=== PATIENT | female | born 1945 | race Caucasian/White ===

== ENCOUNTER 2017-12-03 11:09 | Inpatient (IN) ==
[2017-12-03] MEDS ORDERED: 0.9 % Sodium Chloride 1,000 ML IVC ONE (11:16)
[2017-12-03] MEDS ORDERED: Ipratropium/Albuterol Neb 3 ML IH ONE (11:16)
[2017-12-03] MEDS ORDERED: methylPREDNISolone 125 MG/2 ML VIAL IVP ONE (11:16)
--- NOTE | 2017-12-03 11:25 | Emergency Department Note ---
Disposition Clinical Impression: Acute exacerbation of chronic obstructive airways disease Disposition: Admitted As Inpatient Condition: Good Referrals: Lex Ramos DO [Primary Care Provider] - Forms: ED Satisfaction Letter Time of Disposition: 14:15 General Adult HPI - General Chief complaint: ED Shortness of Breath/Dyspnea Stated complaint: ADRIEN Time Seen by Provider: 12/03/17 11:16 Source: patient, EMS Limitations: no limitations Nursing Notes Reviewed: Yes Vital Signs Reviewed: Yes - History of Present Illness HPI Narrative: One-week history of shortness of breath got significantly worse this morning. Has been on azithromycin with no relief of her COPD exacerbation. Productive cough of a green sputum. Nonfebrile that has been chilling. Chest pain. Uses 2 L of oxygen at home has been requiring more oxygen. Get some relief prior to arrival here with albuterol inhaler however still short of breath and tachypneic. Pain Scale: 0 - Related Data Home Medications Medication Instructions Recorded Confirmed Albuterol Neb [Proventil Neb] 2.5 mg IH Q4HR PRN 08/13/15 08/13/15 Albuterol Sulfate [Albuterol 180 mcg IH Q4HR PRN 08/13/15 08/13/15 Inhaler] Aspirin [Adult Low Dose Aspirin EC] 81 mg PO DAILY 08/13/15 08/13/15 Budesonide/Formoterol 160/4.5 1 puff IH BIDR 08/13/15 08/13/15 [Symbicort] Furosemide [Lasix] 20 mg PO DAILY 08/13/15 08/13/15 Losartan [Cozaar] 25 mg PO DAILY 08/13/15 08/13/15 Oxygen 3 l NS DAILY 08/13/15 08/13/15 Potassium Chloride [Klor-Con 20 meq PO DAILY 08/13/15 08/13/15 Sprinkle] Roflumilast [Daliresp] 500 mcg PO DAILY 08/13/15 08/13/15 Azithromycin [Azithromycin 6-Tab 250 mg PO PER PKG DI 12/03/17 12/03/17 Pack] Citalopram Hydrobromide 40 mg PO DAILY 12/03/17 12/03/17 [Citalopram HBr] Umeclidinium Ramah [Incruse 1 puff IH DAILY 12/03/17 12/03/17 Ellipta] Allergies Allergy/AdvReac Type Severity Reaction Status Date / Time fluticasone AdvReac patient Verified 08/13/15 07:29 [From Advair Diskus] states "it drives her up the wall" salmeterol AdvReac patient Verified 08/13/15 07:29 [From Advair Diskus] states "it drives her up the wall" All systems ED: reviewed and negative except as stated. Constitutional: Reports: chills. Denies: fever ENT ED: Denies: congestion Cardiovascular: Denies: chest pain Respiratory: Reports: cough, dyspnea. Denies: wheezes Gastrointestinal: Reports: nausea. Denies: abdominal pain, vomiting, diarrhea Genitourinary: Denies: urgency, dysuria, frequency Musculoskeletal: Denies: back pain, neck pain Neurological: Denies: headache, weakness Past Medical History - Past Medical History Attestation: Yes The following information was validated with the patient. Source: patient Medical history: Reports: asthma, CHF, COPD, hyperlipidemia, hypertension Psychiatric history: Reports: no psych history - Social History Smoking Status: Current every day smoker Smokeless Tobacco Status: No Alcohol use: Reports: none Drug use: Reports: none Physical Exam - General Limitations: no limitations General appearance: alert, in distress (Appears to be short of breath and tachypneic) - Head Head exam: atraumatic, normocephalic, normal inspection - Eye Eye exam: Present: normal appearance, PERRL, EOMI - ENT ENT exam: normal exam, normal oropharynx, mucous membranes moist - Neck Neck exam: Present: normal inspection, full ROM, trachea midline - Chest Chest inspection: Present: normal inspection, symmetric chest wall rise. Absent : tenderness - Respiratory Respiratory exam: Present: respiratory distress, wheezes, accessory muscle use ( Costal retractions) - Cardiovascular Cardiovascular exam: Present: normal rhythm, tachycardia, normal heart sounds - Abdominal Exam Abdominal exam: Present: soft, Non-Tender. Absent: distention, guarding, rebound, rigidity, organomegaly - Extremities Exam Extremities exam: Present: normal inspection, full ROM. Absent: tenderness, pedal edema - Expanded Lower Extremity Exam Hip/Pelvis exam: Present: normal inspection, full ROM - Back Exam Back exam: Present: normal inspection, full ROM. Absent: tenderness - Neurological Exam Neurological exam: Present: alert, oriented X3 - Psychiatric Psychiatric exam: Present: anxious - Skin Skin exam: Present: warm, dry, intact Course Course Narrative: Female patient visiting to emergency department with a one-week history of shortness of breath and cough. Productive green sputum. Was on azithromycin prescribed by her care physician. No relief of her shortness of breath or cough. No fevers but chills. No chest pain. Does have a history of COPD and wears 2 L of oxygen at home at all times. EMS reports initial oxygen saturation in the low 90s however after assisting with her breathing treatment at home it came up to 97. They had her on 4 L of oxygen on the way here. She has wheezing throughout. And rhonchi in her lower lobes. We will give her a triple DuoNeb and a course of steroids. I anticipate admission for the patient. - Reevaluation(s) Reevaluation #1: Patient resting in bed. She states that she is feeling somewhat better however she does appear to be too Ill. She is still tachycardic. She is receiving her liter fluid bolus at this time. Her lung sounds are clear and they were when she initially came in however she does still have some scant wheezing on the left. We have place patient on Levaquin. She did fail outpatient therapy with azithromycin. Time: 12:23 - Consultations Consultation #1: Dr Nichols accepted Pt in stable condition. Vital Signs Temperature 97.9 F 12/03/17 11:12 Pulse Rate 96 12/03/17 11:12 Respiratory Rate 18 12/03/17 11:12 Blood Pressure 147/133 12/03/17 11:12 O2 Sat by Pulse Oximetry 95 12/03/17 11:12 Temperature 97.9 F 12/03/17 11:12 Pulse Rate 108 12/03/17 14:11 Respiratory Rate 18 12/03/17 14:11 Blood Pressure 177/89 12/03/17 14:11 O2 Sat by Pulse Oximetry 93 12/03/17 14:11 Oxygen Delivery Oxygen Delivery Nasal Cannula Medical Decision Making - Medical Records Medical records reviewed: Yes I reviewed the patient's medical records. - Lab Data Lab results reviewed: Yes I reviewed the patient's lab results. Result diagrams: 12/03/17 11:25 12/03/17 11:25 Lab Results 12/03/17 12/03/17 12/03/17 Range/Units 11:25 11:25 11:25 WBC 7.9 (4.3-11.1) K/mcL RBC 4.74 (3.82-4.97) M/mcL Hgb 13.8 (11.5-15.4) g/dL Hct 42.3 (35.3-44.9) % MCV 89.2 (83.0-100.0) fL MCH 29.1 (28.0-33.3) pg MCHC 32.6 (31.6-35.5) g/dL RDW 12.8 (11.5-14.5) % Plt Count 303 (140-400) K/mcL MPV 9.8 (9.4-12.4) fL Immature Gran % 0.3 (0-4) % Seg Neutrophils % 72.6 % Lymphocytes % 18.1 % Monocytes % 7.7 % Eosinophils % 1.0 % Basophils % 0.3 % Neutrophils # 5.8 (1.6-8.9) K/mcL Lymphocytes # 1.4 (0.6-4.6) K/mcL Monocytes # 0.6 (0.0-1.3) K/mcL Eosinophils # 0.1 (0.0-0.6) K/mcL Basophils # 0.0 (0.0-0.2) K/mcL Sodium 137 (136-145) mEq/L Potassium 3.9 (3.5-5.1) mEq/L Chloride 99 (98-107) mEq/L Carbon Dioxide 29 (23-29) mEq/L BUN 8 (8-23) mg/dL Creatinine 0.64 (0.60-1.20) mg/dL Est GFR ( Amer) > 60 (> 60) Est GFR (Non-Af Amer) > 60 (> 60) BUN/Creatinine Ratio 13 (6-26) Glucose 112 H (70-105) mg/dL Calculated Osmolality 283 (280-300) Lactic Acid 1.1 (0.5-2.2) mmol/L Calcium 9.4 (8.6-10.3) mg/dL Troponin I < 0.03 (< 0.04) ng/mL - Radiology Data Radiology results reviewed: Yes I reviewed the patient's radiology results. Chest X-Ray 12/03/17 11:16 IMPRESSION: Stable examination without acute focal process. D/ / Anup Andersen MD / Anup Andersen MD Interpreting Provider: Anup Andersen MD - EKG Data EKG #1 EKG attestation: Yes I reviewed and interpreted this EKG. EKG results narrative: Sinus tachycardia at a rate of 103. IN interval is 142. Respirations 103. QT is 323. QTC is 382. No signs of acute ischemia. Does have enlarged P waves however they were on the previous EKG no other significant changes from previous EKG dated 04/20/2016.
[2017-12-03 12:02] LABS: Troponin I < 0.03 ng/mL (< 0.04)
--- NOTE | 2017-12-03 12:04 | Emergency Department Note ---
Disposition Clinical Impression: Acute exacerbation of chronic obstructive airways disease Disposition: Still a Patient Forms: ED Satisfaction Letter General Adult HPI - General Chief complaint: ED Shortness of Breath/Dyspnea Stated complaint: ADRIEN Time Seen by Provider: 12/03/17 11:16 Source: patient, EMS Limitations: no limitations Nursing Notes Reviewed: Yes Vital Signs Reviewed: Yes - History of Present Illness Pain Scale: 0 - Related Data Home Medications Medication Instructions Recorded Confirmed Albuterol Neb [Proventil Neb] 2.5 mg IH Q4HR PRN 08/13/15 08/13/15 Albuterol Sulfate [Albuterol 180 mcg IH Q4HR PRN 08/13/15 08/13/15 Inhaler] Aspirin [Adult Low Dose Aspirin EC] 81 mg PO DAILY 08/13/15 08/13/15 Atorvastatin [Lipitor] 10 mg PO DAILY 08/13/15 08/13/15 Budesonide/Formoterol 160/4.5 1 puff IH BIDR 08/13/15 08/13/15 [Symbicort] Citalopram [CeleXA] 20 mg PO DAILY 08/13/15 08/13/15 Furosemide [Lasix] 20 mg PO DAILY 08/13/15 08/13/15 Gabapentin [Neurontin] 100 mg PO TID 08/13/15 08/13/15 Losartan [Cozaar] 25 mg PO DAILY 08/13/15 08/13/15 Oxygen 3 l NS DAILY 08/13/15 08/13/15 Potassium Chloride [Klor-Con 20 meq PO DAILY 08/13/15 08/13/15 Sprinkle] Roflumilast [Daliresp] 500 mcg PO DAILY 08/13/15 08/13/15 Tiotropium [Spiriva] 18 mcg IH DAILY 08/13/15 08/13/15 Previous Rx's Medication Instructions Recorded levoFLOXacin [Levaquin] 500 mg PO DAILY #7 tablet 04/20/16 predniSONE [PredniSONE] 20 mg PO DAILY #18 tablet 04/20/16 Allergies Allergy/AdvReac Type Severity Reaction Status Date / Time fluticasone AdvReac patient Verified 08/13/15 07:29 [From Advair Diskus] states "it drives her up the wall" salmeterol AdvReac patient Verified 08/13/15 07:29 [From Advair Diskus] states "it drives her up the wall" Constitutional: Reports: chills. Denies: fever ENT ED: Denies: congestion Cardiovascular: Denies: chest pain Respiratory: Reports: cough, dyspnea. Denies: wheezes Gastrointestinal: Reports: nausea. Denies: abdominal pain, vomiting, diarrhea Genitourinary: Denies: urgency, dysuria, frequency Musculoskeletal: Denies: back pain, neck pain Neurological: Denies: headache, weakness Past Medical History - Past Medical History Medical history: Reports: asthma, CHF, COPD, hyperlipidemia, hypertension Psychiatric history: Reports: no psych history - Social History Smoking Status: Current every day smoker Smokeless Tobacco Status: No Alcohol use: Reports: none Drug use: Reports: none Physical Exam - General Limitations: no limitations General appearance: alert, in no apparent distress Course - Reevaluation(s) Reevaluation #1: ATTESTATION NOTE I examined this patient and my medical decision-making was reviewed with the Resident Physician, CANDY TOLEDO. I agree with the documented findings, disposition and treatment plan as described except to the extent set forth below. I have personally performed a face to face evaluation on this patient. I have reviewed and agree with the care plan. Briefly: 72-year-old female history of COPD on home O2 comes in with increasing cough shortness of breath and productive sputum. Patient is slightly hypoxic hypokalemic and hypomagnesemic getting parenteral repletion. Patient getting triple DuoNeb chest x-ray EKG shows no acute ischemic changes plan is admission and treatment for COPD flare with possible pneumonia. Provided 35 minutes critical care service for this patient admission disposition pending Time: 12:02 Vital Signs Temperature 97.9 F 12/03/17 11:12 Pulse Rate 96 12/03/17 11:12 Respiratory Rate 18 12/03/17 11:12 Blood Pressure 147/133 12/03/17 11:12 O2 Sat by Pulse Oximetry 95 12/03/17 11:12 Temperature 97.9 F 12/03/17 11:12 Pulse Rate 96 12/03/17 11:12 Respiratory Rate 20 12/03/17 11:31 Blood Pressure 147/133 12/03/17 11:12 O2 Sat by Pulse Oximetry 92 12/03/17 11:31 Oxygen Delivery Oxygen Delivery Nasal Cannula Medical Decision Making - Lab Data Lab Results 12/03/17 Range/Units 11:25 Lactic Acid 1.1 (0.5-2.2) mmol/L
[2017-12-03 12:07] LABS: BUN/Creatinine Ratio 13 (6-26); Blood Urea Nitrogen 8 mg/dL (8-23); Calcium 9.4 mg/dL (8.6-10.3); Carbon Dioxide 29 mEq/L (23-29); Chloride 99 mEq/L (98-107); Glucose 112 mg/dL (70-105); Osmolality,Calculated 283 (280-300); Potassium 3.9 mEq/L (3.5-5.1); Sodium 137 mEq/L (136-145); eGFR For African Americans > 60 (> 60); eGFR For Non-African Americans > 60 (> 60)
[2017-12-03 12:13] LABS: Basophils % 0.3 %; Eosinophils # 0.1 K/mcL (0.0-0.6); Hematocrit 42.3 % (35.3-44.9); Hemoglobin 13.8 g/dL (11.5-15.4); Immature Granulocytes % 0.3 % (0-4); Lymphocytes # 1.4 K/mcL (0.6-4.6); Lymphocytes % 18.1 %; Mean Corpuscular HGB Conc 32.6 g/dL (31.6-35.5); Mean Corpuscular Hemoglobin 29.1 pg (28.0-33.3); Mean Corpuscular Volume 89.2 fL (83.0-100.0); Mean Platelet Volume 9.8 fL (9.4-12.4); Monocytes # 0.6 K/mcL (0.0-1.3); Monocytes % 7.7 %; Neutrophils # 5.8 K/mcL (1.6-8.9); Platelet Count 303 K/mcL (140-400); Red Blood Count 4.74 M/mcL (3.82-4.97); Red Cell Distribution Width 12.8 % (11.5-14.5); Segmented Neutrophils % 72.6 %
[2017-12-03] MEDS ORDERED: Levofloxacin 750 MG/150 ML 750 MG/150 ML BAG IVPB ONE (13:16)
--- NOTE | 2017-12-03 15:18 | Internal Med History&Physical ---
Date of Encounter: 12/03/17 Time of Encounter: 15:15 Assessment and Plan (1) HTN (hypertension) Current visit: Yes Status: Chronic Chronic and noncontrol make adjustment to his home medication Qualifiers: Hypertension type: essential hypertension Qualified Code(s): I10 - Essential (primary) hypertension (2) Acute exacerbation of chronic obstructive airways disease Current visit: Yes Status: Acute Acute exacerbation due to bronchitis was started on Levaquin DuoNeb and steroids (3) Hyperlipidemia Current visit: Yes Status: Chronic Chronic resume home medication and check another profile in a.m. Qualifiers: Hyperlipidemia type: pure hypercholesterolemia Qualified Code(s): E78.00 - Pure hypercholesterolemia, unspecified; E78.0 - Pure hypercholesterolemia (4) Obesity Current visit: Yes Status: Chronic Qualifiers: Obesity type: due to excess calories Obesity classification: unspecified obesity classification Serious obesity comorbidity presence: unspecified whether serious comorbidity present Qualified Code(s): E66.09 - Other obesity due to excess calories (5) Smoking Current visit: Yes Status: Chronic Internal Medicine - H&P: HPI Chief complaint: sob Admitted From: Emergency Dept Plans for Post Hospital Care: Home History of present illness: Ms. Riley is a 72 year old female Patient with history of asthma, COPD, high cholesterol, hypertension, obesity, and smoking history. Patient presented emergency room with shortness of breath progressively worsening with cough productive of greenish sputum chest x-ray does not show pneumonia in the ER treated with DuoNeb and then been admitted for COPD exacerbation. Past Med Surg Social Fam HX - Past Medical History Medical history: asthma, CHF, COPD, hyperlipidemia, hypertension Psychiatric history: no psych history - Social History Smoking Status: Current every day smoker Smokeless Tobacco Status: No Alcohol use: none Drug use: none Internal Medicine - H&P: Meds Albuterol Neb [Proventil Neb] 2.5 mg IH Q4HR PRN 08/13/15 [History] Albuterol Sulfate [Albuterol Inhaler] 2 puff IH Q4HR PRN 08/13/15 [History] Aspirin [Adult Low Dose Aspirin EC] 81 mg PO DAILY 08/13/15 [History] Budesonide/Formoterol 160/4.5 [Symbicort] 1 puff IH BIDR 08/13/15 [History] Furosemide [Lasix] 20 mg PO DAILY 08/13/15 [History] Losartan [Cozaar] 25 mg PO DAILY 08/13/15 [History] Oxygen 3 l NS DAILY 08/13/15 [History] Potassium Chloride [Klor-Con Sprinkle] 20 meq PO DAILY 08/13/15 [History] Roflumilast [Daliresp] 500 mcg PO DAILY 08/13/15 [History] Azithromycin [Azithromycin 6-Tab Pack] 250 mg PO PER PKG DI 12/03/17 [History] Citalopram Hydrobromide [Citalopram HBr] 40 mg PO DAILY 12/03/17 [History] Umeclidinium Aurora [Incruse Ellipta] 1 puff IH DAILY 12/03/17 [History] 3 Allergy/AdvReac Type Severity Reaction Status Date / Time fluticasone AdvReac patient Verified 08/13/15 07:29 [From Advair Diskus] states "it drives her up the wall" salmeterol AdvReac patient Verified 08/13/15 07:29 [From Advair Diskus] states "it drives her up the wall" All Systems PM: A 10-system review of systems was performed and is negative for pertinent findings except as documented above in the HPI. - Constitutional Constitutional: lethargy - EENT Eyes: no change in vision, no discharge, no pain, no photophobia Ears: no ear discharge, no ear pain, no tinnitus Nose, mouth and throat: no dysphagia, no nasal discharge, no neck pain, no sore throat - Cardiovascular Cardiovascular ROS IM: dyspnea on exertion - Respiratory Respiratory: cough, dyspnea on exertion, wheezing - Gastrointestinal Gastrointestinal: no abdominal pain, no diarrhea, no hematemesis, no hematochezia, no melena, no nausea, no vomiting - Genitourinary Genitourinary: no change in urinary stream, no dysuria, no flank pain, no hematuria - Musculoskeletal Musculoskeletal ROS IM: no numbness, no tingling - Constitutional Vitals: Temp Pulse Resp BP Pulse Ox 97.9 F 108 18 177/89 93 12/03/17 11:12 12/03/17 14:11 12/03/17 14:11 12/03/17 14:11 12/03/17 14:11 - Eye Eye exam: Present: PERRL, conjuntiva pink, sclera anicteric Pupils: Present: PERRL - Neck Neck exam general surgery: Present: supple, trachea midline. Absent: lymphadenopathy - Respiratory Respiratory exam: Present: decreased breath sounds, wheezes - Cardiovascular Cardiovascular exam: Present: RRR, +S1, +S2. Absent: diastolic murmur, gallop, rubs, systolic murmur - GI/Abdominal GI/Abdominal exam: Present: normal bowel sounds, soft, no peritoneal signs. Absent: distended, tenderness Internal Med - H&P Results - Labs CBC & Chem 7: 12/03/17 11:25 12/03/17 11:25 Labs: Short CBC 12/03/17 Range/Units 11:25 WBC 7.9 (4.3-11.1) K/mcL Hgb 13.8 (11.5-15.4) g/dL Hct 42.3 (35.3-44.9) % Plt Count 303 (140-400) K/mcL Neutrophils # 5.8 (1.6-8.9) K/mcL BMP 12/03/17 11:25 Sodium 137 Potassium 3.9 Chloride 99 Carbon Dioxide 29 BUN 8 Creatinine 0.64 Glucose 112 H Calcium 9.4 Cardiac Enzymes 12/03/17 Range/Units 11:25 Troponin I < 0.03 (< 0.04) ng/mL - Impressions ITS Impressions Chest X-Ray 12/03/17 11:16 IMPRESSION: Stable examination without acute focal process. D/ / Anup Andersen MD / Anup Andersen MD Interpreting Provider: Anup Andersen MD
[2017-12-03] MEDS ORDERED: traMADol 50 MG TABLET PO PRN (15:25)
[2017-12-03] MEDS ORDERED: Naloxone 0.4 MG/ML INJ IVP PRN (15:25)
[2017-12-03] MEDS ORDERED: Acetaminophen 325 MG TABLET PO PRN (15:25)
[2017-12-03] MEDS ORDERED: Ipratropium/Albuterol Neb 3 ML IH PRN (15:36)
[2017-12-03] MEDS: Ipratropium/Albuterol Neb 3 ML IH SCH ×2 (16:25→22:48)
[2017-12-03] MEDS ORDERED: *HR* Labetalol 20 MG/4 ML SYRINGE IVP PRN (18:50)
[2017-12-03] MEDS: amLODIPine 5 MG TABLET PO SCH (19:07)
[2017-12-03] MEDS: 0.9 % Sodium Chloride 1,000 ML IVC SCH (19:09)
[2017-12-03] MEDS: MethylPREDNISolone 40 MG/ML VIAL IVP SCH ×2 (19:10→23:18)
[2017-12-03] MEDS: Budesonide/Formoterol 160/4.5 MDI IH SCH (22:48)
[2017-12-04] MEDS: Ipratropium/Albuterol Neb 3 ML IH SCH ×4 (03:06→20:38)
[2017-12-04 04:52] LABS: Hematocrit 39.1 % (35.3-44.9); Hemoglobin 12.9 g/dL (11.5-15.4); Mean Corpuscular Volume 87.9 fL (83.0-100.0); Mean Platelet Volume 11.2 fL (9.4-12.4); Platelet Count 240 K/mcL (140-400); Red Blood Count 4.45 M/mcL (3.82-4.97); Red Cell Distribution Width 12.7 % (11.5-14.5)
[2017-12-04 04:57] LABS: Alanine Aminotransferase 10 Units/L (7-52); Albumin 3.9 g/dL (3.5-5.7); Albumin/Globulin Ratio 1.1 (1.1-2.2); Alkaline Phosphatase 80 Units/L (34-104); Aspartate Amino Transferase 17 Units/L (13-39); BUN/Creatinine Ratio 9 (6-26); Bilirubin,Total 0.7 mg/dL (0.3-1.0); Blood Urea Nitrogen 5 mg/dL (8-23); Calcium 9.2 mg/dL (8.6-10.3); Carbon Dioxide 28 mEq/L (23-29); Chloride 100 mEq/L (98-107); Cholesterol 183 mg/dL (< 200); Globulin 3.4 g/dL (2.4-3.5); Glucose 149 mg/dL (70-105); HDL Cholesterol 62 mg/dL (40-59); LDL Cholesterol,Calculated 108 mg/dL (0-99); Osmolality,Calculated 286 (280-300); Potassium 4.4 mEq/L (3.5-5.1); Sodium 138 mEq/L (136-145); Total Protein 7.3 g/dL (6.4-8.9); Triglycerides 64 mg/dL (< 150); eGFR For African Americans > 60 (> 60); eGFR For Non-African Americans > 60 (> 60)
[2017-12-04] MEDS ORDERED: Nystatin POWDER 30 GM BOTTLE TP PRN (08:41)
[2017-12-04] MEDS ORDERED: (Umeclidinium Bromide [Incruse Ellipta] 1 PUFF) IH SCH (09:00)
[2017-12-04] MEDS ORDERED: (Roflumilast [Daliresp] 500 MCG) PO SCH (09:00)
[2017-12-04] MEDS: Budesonide/Formoterol 160/4.5 MDI IH SCH (10:23)
[2017-12-04] MEDS: MethylPREDNISolone 40 MG/ML VIAL IVP SCH ×2 (10:43→16:00)
[2017-12-04] MEDS: amLODIPine 5 MG TABLET PO SCH (10:44)
[2017-12-04] MEDS: Levofloxacin 750 MG/150 ML 750 MG/150 ML BAG IVPB SCH (10:44)
[2017-12-04] MEDS: Aspirin Enteric Coated 81 MG Tablet PO SCH (10:44)
[2017-12-04] MEDS: 0.9 % Sodium Chloride 1,000 ML IVC SCH (10:50)
--- NOTE | 2017-12-04 11:19 | Internal Med Progress Note ---
<RubenJeremy Reynaga - Last Filed: 12/04/17 11:16> Date of Encounter: 12/04/17 Time of Encounter: 08:45 - Assessment and plan (1) Acute exacerbation of chronic obstructive airways disease Current Visit: Yes Status: Acute Assessment and plan: 72-year-old female with severe COPD on baseline 3 L oxygen at home, continues to smoke daily recent treatment for bronchitis with azithromycin and steroids the outpatient setting. - Current oxygen requirements is 4 L nasal cannula, diffuse diminished breath sounds with diffuse wheezing. - Home bronchodilators include albuterol inhaler, increase a lipid, Symbicort and Roflumilast - CXR without findings of consolidation - ABX: Levaquin day 2 - Continue scheduled duo nebs, wean oxygen as tolerated to baseline 3 L, continue as needed albuterol inhaler, continue Symbicort, IV Solu-Medrol 40 mg every 8 hours, continue Roflumilast Clinical picture: Improving (2) Yeast infection of the skin Current Visit: Yes Status: Acute Assessment and plan: Bilateral breast folds and inguinal folds demonstrate satellite distribution of yeast infection. - Lotrimin and nystatin treatments twice a day (3) HTN (hypertension) Current Visit: Yes Status: Chronic Assessment and plan: Mildly hypertensive. Continue management with Norvasc 10 mg, labetalol 10 mg IV every 6 hours when necessary, Cozaar 50 mg by mouth daily Qualifiers: Hypertension type: essential hypertension Qualified Code(s): I10 - Essential (primary) hypertension (4) Smoking Current Visit: Yes Status: Chronic Assessment and plan: Patient is an every day smoker likely contributed to her severe COPD and acute COPD exacerbation. - Recommend smoking cessation (5) DVT prophylaxis Current Visit: Yes Status: Acute Assessment and plan: Lovenox daily 6 AM - Time Spent With Patient Total time spent is greater than 50% in coordination of care (as documented) at patient's floor/unit and/or counseling patient: - Subjective Interval history: Miss Riley 72-year-old female seen about the patient bedside this morning. She is alert awake interactive no acute distress. She states that she does feel little more short of breath than her baseline but does have severe COPD and uses her inhalers regularly. She denies any fevers, chills, diaphoresis but is having clear sputum production. Denies any chest pain, abdominal pain, nausea vomiting diarrhea. Complaining of a rash under her breasts bilaterally and in her groin folds. No other current complaints. - Constitutional Vitals: Temp Pulse Resp BP Pulse Ox 97.8 F 96 18 160/83 92 12/04/17 10:32 12/04/17 10:32 12/04/17 10:32 12/04/17 10:32 12/04/17 10:32 Exam: General: Patient alert, awake, oriented 3, interactive, in no acute distress HEENT: Normocephalic, atraumatic, pupils equal reactive to light,oral mucosa moist, uvula midline, neck supple trachea midline no palpable lymphadenopathy, no thyromegaly. Chest: Symmetric bilateral correlating with respiratory effort, effort nonlabored. Cardiac: Regular rate and rhythm, positive S1 and S2. no bruits appreciated bilateral carotids, Radial pulses 2+ bilateral, posterior tibial and dorsal pedal pulses 2+ bilateral. Respiratory: Diffuse diminished breath sounds with diffuse wheezing, chest demonstrates barreling, patient agrees with pursed lips. Abdomen: Soft, nontender, positive bowel sounds, no palpable masses appreciated on examination Extremities: Symmetric bilateral, bilateral lower extremities without erythema or edema patient moving all 4 extremities spontaneously. Patient has findings of erythema in satellite distribution under bilateral breasts and inguinal folds bilateral. Neurologic: No focal deficits appreciated on examination. Face symmetric, muscle strength symmetric bilateral upper and lower extremities. Internal Medicine: Result - Labs CBC & Chem 7: 12/04/17 04:09 12/04/17 04:09 Labs: Short CBC 12/04/17 Range/Units 04:09 WBC 5.8 (4.3-11.1) K/mcL Hgb 12.9 (11.5-15.4) g/dL Hct 39.1 (35.3-44.9) % Plt Count 240 (140-400) K/mcL BMP 12/04/17 04:09 Sodium 138 Potassium 4.4 Chloride 100 Carbon Dioxide 28 BUN 5 L Creatinine 0.57 L Glucose 149 H Calcium 9.2 Liver Function 12/04/17 Range/Units 04:09 Total Bilirubin 0.7 (0.3-1.0) mg/dL AST 17 (13-39) Units/L ALT 10 (7-52) Units/L Alkaline Phosphatase 80 (34-104) Units/L Albumin 3.9 (3.5-5.7) g/dL Consult Discharge Plan - Plan Referrals: Lex Ramos DO [Primary Care Provider] - 12/11/17 9:30 am <Carlos A Ball - Last Filed: 12/04/17 16:14> Date of Encounter: 12/04/17 - Time Spent With Patient Total time spent is greater than 50% in coordination of care (as documented) at patient's floor/unit and/or counseling patient: - Constitutional Vitals: Temp Pulse Resp BP Pulse Ox 97.8 F 96 16 160/83 94 12/04/17 10:32 12/04/17 10:32 12/04/17 15:02 12/04/17 10:32 12/04/17 15:02 Internal Medicine: Result - Labs CBC & Chem 7: 12/04/17 04:09 12/04/17 04:09 Labs: Short CBC 12/04/17 Range/Units 04:09 WBC 5.8 (4.3-11.1) K/mcL Hgb 12.9 (11.5-15.4) g/dL Hct 39.1 (35.3-44.9) % Plt Count 240 (140-400) K/mcL BMP 12/04/17 04:09 Sodium 138 Potassium 4.4 Chloride 100 Carbon Dioxide 28 BUN 5 L Creatinine 0.57 L Glucose 149 H Calcium 9.2 Liver Function 12/04/17 Range/Units 04:09 Total Bilirubin 0.7 (0.3-1.0) mg/dL AST 17 (13-39) Units/L ALT 10 (7-52) Units/L Alkaline Phosphatase 80 (34-104) Units/L Albumin 3.9 (3.5-5.7) g/dL - Attending Attestation acute on chronic acute hypoxic resp failure 2ry to acute copd exacerbation duet to acute bacterial bronchitis continue levaquin day 2 solumedrol I examined this patient and my medical decision-making was reviewed with the Resident Physician. I agree with the documented findings, disposition and treatment plan as described except to the extent set forth below.
[2017-12-04] MEDS ORDERED: Ipratropium/Albuterol Neb 3 ML IH PRN (21:21)
[2017-12-04] MEDS: Clotrimazole 1% CRM 15 GM TUBE TP SCH (21:25)
--- NOTE | 2017-12-04 22:58 | Electrocardiograph Report ---
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
[2017-12-05] MEDS: MethylPREDNISolone 40 MG/ML VIAL IVP SCH ×3 (02:46→15:29)
[2017-12-05] MEDS: Ipratropium/Albuterol Neb 3 ML IH SCH ×4 (03:12→21:22)
[2017-12-05 05:27] LABS: Hematocrit 39.3 % (35.3-44.9); Hemoglobin 12.7 g/dL (11.5-15.4); Immature Granulocytes % 0.5 % (0-4); Lymphocytes % 5.9 %; Mean Corpuscular HGB Conc 32.3 g/dL (31.6-35.5); Mean Corpuscular Hemoglobin 28.4 pg (28.0-33.3); Mean Corpuscular Volume 87.9 fL (83.0-100.0); Mean Platelet Volume 9.9 fL (9.4-12.4); Monocytes % 2.9 %; Platelet Count 341 K/mcL (140-400); Red Blood Count 4.47 M/mcL (3.82-4.97); Red Cell Distribution Width 12.5 % (11.5-14.5); Segmented Neutrophils % 90.6 %
[2017-12-05 05:28] LABS: Basophils % 0.1 %; Lymphocytes # 0.8 K/mcL (0.6-4.6); Monocytes # 0.4 K/mcL (0.0-1.3); Neutrophils # 11.7 K/mcL (1.6-8.9)
[2017-12-05 05:30] LABS: Alanine Aminotransferase 10 Units/L (7-52); Albumin 3.9 g/dL (3.5-5.7); Albumin/Globulin Ratio 1.3 (1.1-2.2); Alkaline Phosphatase 77 Units/L (34-104); Aspartate Amino Transferase 18 Units/L (13-39); BUN/Creatinine Ratio 17 (6-26); Bilirubin,Total 0.6 mg/dL (0.3-1.0); Blood Urea Nitrogen 10 mg/dL (8-23); Calcium 9.4 mg/dL (8.6-10.3); Carbon Dioxide 29 mEq/L (23-29); Chloride 99 mEq/L (98-107); Glucose 154 mg/dL (70-105); Osmolality,Calculated 284 (280-300); Potassium 3.7 mEq/L (3.5-5.1); Sodium 136 mEq/L (136-145); Total Protein 6.9 g/dL (6.4-8.9); eGFR For African Americans > 60 (> 60); eGFR For Non-African Americans > 60 (> 60)
[2017-12-05] MEDS: *HR* Enoxaparin 40 MG/0.4 ML SYRINGE SQ SCH (05:47)
[2017-12-05] MEDS: amLODIPine 5 MG TABLET PO SCH (08:24)
[2017-12-05] MEDS: Aspirin Enteric Coated 81 MG Tablet PO SCH (08:24)
[2017-12-05] MEDS: Levofloxacin 750 MG/150 ML 750 MG/150 ML BAG IVPB SCH (08:25)
[2017-12-05] MEDS: Clotrimazole 1% CRM 15 GM TUBE TP SCH ×2 (08:26→20:30)
--- NOTE | 2017-12-05 08:50 | Internal Med Progress Note ---
<Jeremy Miranda - Last Filed: 12/05/17 10:36> Date of Encounter: 12/05/17 Time of Encounter: 08:50 - Assessment and plan (1) Acute exacerbation of chronic obstructive airways disease Current Visit: Yes Status: Acute Assessment and plan: 72-year-old female with severe COPD on baseline 3 L oxygen at home, continues to smoke daily recent treatment for bronchitis with azithromycin and steroids the outpatient setting. - Current oxygen requirements is 4 L nasal cannula, diffuse diminished breath sounds with diffuse wheezing. - Home bronchodilators include albuterol inhaler, increase a lipid, Symbicort and Roflumilast - CXR without findings of consolidation - ABX: Levaquin day 3 - Continue scheduled duo nebs, wean oxygen as tolerated to baseline 3 L, continue as needed albuterol inhaler, continue Symbicort, IV Solu-Medrol 40 mg every 8 hours, continue Roflumilast Clinical picture: Improving, will likely need long-term taper of by mouth steroids (2) Yeast infection of the skin Current Visit: Yes Status: Acute Assessment and plan: Bilateral breast folds and inguinal folds demonstrate satellite distribution of yeast infection. - Lotrimin and nystatin treatments twice a day (3) HTN (hypertension) Current Visit: Yes Status: Chronic Assessment and plan: Mildly hypertensive. Continue management with Norvasc 10 mg, labetalol 10 mg IV every 6 hours when necessary, Cozaar 50 mg by mouth daily Qualifiers: Hypertension type: essential hypertension Qualified Code(s): I10 - Essential (primary) hypertension (4) Smoking Current Visit: Yes Status: Chronic Assessment and plan: Patient is an every day smoker likely contributed to her severe COPD and acute COPD exacerbation. - Recommend smoking cessation (5) DVT prophylaxis Current Visit: Yes Status: Acute Assessment and plan: Lovenox daily 6 AM (6) Acute and chronic respiratory failure ([id number]) Current Visit: Yes Status: Acute Assessment and plan: due to above. - Time Spent With Patient Total time spent is greater than 50% in coordination of care (as documented) at patient's floor/unit and/or counseling patient: - Subjective Interval history: Miss Riley 72-year-old female seen about the patient bedside this morning. She is alert awake interactive no acute distress. She feels her breathing is still the same. Yesterday, minimal improvement, continues to have some mild sputum production. Denies any fevers had sweating last evening but denies chills. Denies any other new symptoms. She feels that she is in need for her breathing treatment. No further questions at this time understands she may need another day or 2 of inpatient treatment. - Constitutional Vitals: Temp Pulse Resp BP Pulse Ox 98.1 F 92 16 155/84 96 12/05/17 06:44 12/05/17 06:44 12/05/17 06:44 12/05/17 06:44 12/05/17 08:09 Exam: General: Patient alert, awake, oriented 3, interactive, in no acute distress HEENT: Normocephalic, atraumatic, pupils equal reactive to light,oral mucosa moist, uvula midline, neck supple trachea midline no palpable lymphadenopathy, no thyromegaly. Chest: Symmetric bilateral correlating with respiratory effort, effort nonlabored. Cardiac: Regular rate and rhythm, positive S1 and S2. no bruits appreciated bilateral carotids, Radial pulses 2+ bilateral, posterior tibial and dorsal pedal pulses 2+ bilateral. Respiratory: Diffuse diminished breath sounds with diffuse wheezing, chest demonstrates barreling, patient agrees with pursed lips. Abdomen: Soft, nontender, positive bowel sounds, no palpable masses appreciated on examination Extremities: Symmetric bilateral, bilateral lower extremities without erythema or edema patient moving all 4 extremities spontaneously. Patient has findings of erythema in satellite distribution under bilateral breasts and inguinal folds bilateral. Neurologic: No focal deficits appreciated on examination. Face symmetric, muscle strength symmetric bilateral upper and lower extremities. Internal Medicine: Result - Labs CBC & Chem 7: 12/05/17 04:18 12/05/17 04:18 Labs: Short CBC 12/05/17 Range/Units 04:18 WBC 12.9 H D (4.3-11.1) K/mcL Hgb 12.7 (11.5-15.4) g/dL Hct 39.3 (35.3-44.9) % Plt Count 341 (140-400) K/mcL Neutrophils # 11.7 H (1.6-8.9) K/mcL BMP 12/05/17 04:18 Sodium 136 Potassium 3.7 Chloride 99 Carbon Dioxide 29 BUN 10 Creatinine 0.60 Glucose 154 H Calcium 9.4 Liver Function 12/05/17 Range/Units 04:18 Total Bilirubin 0.6 (0.3-1.0) mg/dL AST 18 (13-39) Units/L ALT 10 (7-52) Units/L Alkaline Phosphatase 77 (34-104) Units/L Albumin 3.9 (3.5-5.7) g/dL Consult Discharge Plan - Plan Referrals: Lex Ramos DO [Primary Care Provider] - 12/11/17 9:30 am <Carlos A Ball - Last Filed: 12/05/17 12:57> Date of Encounter: 12/05/17 - Assessment and plan (1) Acute exacerbation of chronic obstructive airways disease Current Visit: Yes Status: Acute (2) HTN (hypertension) Current Visit: Yes Status: Chronic Qualifiers: Hypertension type: essential hypertension Qualified Code(s): I10 - Essential (primary) hypertension (3) Smoking Current Visit: Yes Status: Chronic (4) Yeast infection of the skin Current Visit: Yes Status: Acute (5) DVT prophylaxis Current Visit: Yes Status: Acute (6) Acute and chronic respiratory failure ([id number]) Current Visit: Yes Status: Acute - Time Spent With Patient Total time spent is greater than 50% in coordination of care (as documented) at patient's floor/unit and/or counseling patient: - Constitutional Vitals: Temp Pulse Resp BP Pulse Ox 98.0 F 102 18 136/81 97 12/05/17 11:01 12/05/17 11:01 12/05/17 11:01 12/05/17 11:01 12/05/17 11:01 Internal Medicine: Result - Labs CBC & Chem 7: 12/05/17 04:18 12/05/17 04:18 Labs: Short CBC 12/05/17 Range/Units 04:18 WBC 12.9 H D (4.3-11.1) K/mcL Hgb 12.7 (11.5-15.4) g/dL Hct 39.3 (35.3-44.9) % Plt Count 341 (140-400) K/mcL Neutrophils # 11.7 H (1.6-8.9) K/mcL BMP 12/05/17 04:18 Sodium 136 Potassium 3.7 Chloride 99 Carbon Dioxide 29 BUN 10 Creatinine 0.60 Glucose 154 H Calcium 9.4 Liver Function 04/11/18 Range/Units 04:18 Total Bilirubin 0.6 (0.3-1.0) mg/dL AST 18 (13-39) Units/L ALT 10 (7-52) Units/L Alkaline Phosphatase 77 (34-104) Units/L Albumin 3.9 (3.5-5.7) g/dL - Attending Attestation acute on chronic acute hypoxic resp failure 2ry to acute copd exacerbation duet to acute bacterial bronchitis continue levaquin day 3 solumedrol I examined this patient and my medical decision-making was reviewed with the Resident Physician. I agree with the documented findings, disposition and treatment plan as described except to the extent set forth below.
[2017-12-06] MEDS: MethylPREDNISolone 40 MG/ML VIAL IVP SCH ×3 (00:37→16:45)
[2017-12-06] MEDS: Ipratropium/Albuterol Neb 3 ML IH SCH ×4 (03:52→22:41)
[2017-12-06] MEDS: *HR* Enoxaparin 40 MG/0.4 ML SYRINGE SQ SCH (06:27)
[2017-12-06] MEDS: amLODIPine 5 MG TABLET PO SCH (09:25)
[2017-12-06] MEDS: Aspirin Enteric Coated 81 MG Tablet PO SCH (09:27)
[2017-12-06] MEDS: Levofloxacin 750 MG/150 ML 750 MG/150 ML BAG IVPB SCH (09:35)
--- NOTE | 2017-12-06 10:04 | Internal Med Progress Note ---
<Jeremy Miranda - Last Filed: 12/06/17 10:01> Date of Encounter: 12/06/17 Time of Encounter: 07:25 - Assessment and plan (1) Acute exacerbation of chronic obstructive airways disease Current Visit: Yes Status: Acute Assessment and plan: 72-year-old female with severe COPD on baseline 3 L oxygen at home, continues to smoke daily recent treatment for bronchitis with azithromycin and steroids the outpatient setting. - Current oxygen requirements is 4 L nasal cannula, diffuse diminished breath sounds with diffuse wheezing. - Home bronchodilators include albuterol inhaler, increase a lipid, Symbicort and Roflumilast - CXR without findings of consolidation - ABX: Levaquin day 4 - Continue scheduled duo nebs, wean oxygen as tolerated to baseline 3 L, continue as needed albuterol inhaler, continue Symbicort, IV Solu-Medrol 40 mg every 8 hours, continue Roflumilast Clinical picture: Improving, will likely need long-term taper of by mouth steroids (2) Yeast infection of the skin Current Visit: Yes Status: Acute Assessment and plan: Bilateral breast folds and inguinal folds demonstrate satellite distribution of yeast infection. - Lotrimin and nystatin treatments twice a day (3) HTN (hypertension) Current Visit: Yes Status: Chronic Assessment and plan: Mildly hypertensive. Continue management with Norvasc 10 mg, labetalol 10 mg IV every 6 hours when necessary, Cozaar 50 mg by mouth daily Qualifiers: Hypertension type: essential hypertension Qualified Code(s): I10 - Essential (primary) hypertension (4) Smoking Current Visit: Yes Status: Chronic Assessment and plan: Patient is an every day smoker likely contributed to her severe COPD and acute COPD exacerbation. - Recommend smoking cessation - Patient states that she is no longer going to smoke and has quit. She has Chantix at home which she is going to start at discharge. (5) DVT prophylaxis Current Visit: Yes Status: Acute Assessment and plan: Lovenox daily 6 AM (6) Acute and chronic respiratory failure ([id number]) Current Visit: Yes Status: Acute Assessment and plan: due to above. - Time Spent With Patient Total time spent is greater than 50% in coordination of care (as documented) at patient's floor/unit and/or counseling patient: - Subjective Interval history: Miss Riley 72-year-old female seen about the patient bedside this morning. She is alert awake interactive no acute distress. She feels her breathing is mildly improved compared to yesterday. She still feels that she has increased shortness of breath but tolerating 3 L nasal cannula oxygen. She frequently needs scheduled DuoNeb treatments. She feels it is too early for discharge with her current breathing. - Constitutional Vitals: Temp Pulse Resp BP Pulse Ox 98.5 F 92 15 156/82 93 12/06/17 06:37 12/06/17 06:37 12/06/17 06:37 12/06/17 06:37 12/06/17 06:37 Exam: General: Patient alert, awake, oriented 3, interactive, mild distress HEENT: Normocephalic, atraumatic, pupils equal reactive to light, poor dentition neck supple trachea midline no palpable lymphadenopathy, no thyromegaly. Chest: Symmetric bilateral correlating with respiratory effort, effort nonlabored. Cardiac: Irregular rhythm with appropriate rate, positive S2, S1, Radial pulses 2+ bilateral, posterior tibial and dorsal pedal pulses 2+ bilateral. Respiratory: Clear to auscultation all lung flores Abdomen: Soft, tenderness in the RLQ positive bowel sounds, no palpable masses appreciated on examination Extremities: Symmetric bilateral, bilateral lower extremities without erythema or edema patient moving all 4 extremities spontaneously. Neurologic: No focal deficits appreciated on examination. Face symmetric, muscle strength symmetric bilateral upper and lower extremities. Internal Medicine: Result - Labs CBC & Chem 7: 12/05/17 04:18 12/05/17 04:18 Consult Discharge Plan - Plan Referrals: Lex Ramos DO [Primary Care Provider] - 12/11/17 9:30 am <Carlos A Ball - Last Filed: 12/06/17 15:46> Date of Encounter: 12/06/17 - Assessment and plan (1) Acute exacerbation of chronic obstructive airways disease Current Visit: Yes Status: Acute (2) HTN (hypertension) Current Visit: Yes Status: Chronic Qualifiers: Hypertension type: essential hypertension Qualified Code(s): I10 - Essential (primary) hypertension (3) Smoking Current Visit: Yes Status: Chronic (4) Yeast infection of the skin Current Visit: Yes Status: Acute (5) DVT prophylaxis Current Visit: Yes Status: Acute (6) Acute and chronic respiratory failure ([id number]) Current Visit: Yes Status: Acute - Time Spent With Patient Total time spent is greater than 50% in coordination of care (as documented) at patient's floor/unit and/or counseling patient: - Constitutional Vitals: Temp Pulse Resp BP Pulse Ox 98 F 100 16 142/84 96 12/06/17 15:06 12/06/17 15:06 12/06/17 15:06 12/06/17 15:06 12/06/17 15:06 Internal Medicine: Result - Labs CBC & Chem 7: 12/05/17 04:18 12/05/17 04:18 - Attending Attestation acute on chronic acute hypoxic resp failure 2ry to acute copd exacerbation due to acute bacterial bronchitis continue levaquin day 4 solumedrol I examined this patient and my medical decision-making was reviewed with the Resident Physician. I agree with the documented findings, disposition and treatment plan as described except to the extent set forth below.
[2017-12-06] MEDS: Clotrimazole 1% CRM 15 GM TUBE TP SCH ×2 (10:17→22:15)
[2017-12-07] MEDS: MethylPREDNISolone 40 MG/ML VIAL IVP SCH ×2 (00:23→09:05)
[2017-12-07] MEDS: Ipratropium/Albuterol Neb 3 ML IH SCH ×2 (04:14→09:30)
[2017-12-07] MEDS: *HR* Enoxaparin 40 MG/0.4 ML SYRINGE SQ SCH (06:08)
[2017-12-07 07:14] VITALS: BP 150/79
[2017-12-07 07:20] LABS: Basophils % 0.1 %; Hematocrit 38.6 % (35.3-44.9); Hemoglobin 12.9 g/dL (11.5-15.4); Immature Granulocytes % 0.9 % (0-4); Lymphocytes # 0.6 K/mcL (0.6-4.6); Lymphocytes % 5.2 %; Mean Corpuscular HGB Conc 33.4 g/dL (31.6-35.5); Mean Corpuscular Hemoglobin 28.8 pg (28.0-33.3); Mean Corpuscular Volume 86.2 fL (83.0-100.0); Mean Platelet Volume 9.5 fL (9.4-12.4); Monocytes # 0.4 K/mcL (0.0-1.3); Monocytes % 3.8 %; Neutrophils # 9.5 K/mcL (1.6-8.9); Platelet Count 347 K/mcL (140-400); Red Blood Count 4.48 M/mcL (3.82-4.97); Red Cell Distribution Width 12.4 % (11.5-14.5)
[2017-12-07 07:41] LABS: BUN/Creatinine Ratio 20 (6-26); Blood Urea Nitrogen 12 mg/dL (8-23); Calcium 9.1 mg/dL (8.6-10.3); Carbon Dioxide 32 mEq/L (23-29); Chloride 98 mEq/L (98-107); Glucose 161 mg/dL (70-105); Osmolality,Calculated 283 (280-300); Potassium 3.7 mEq/L (3.5-5.1); Sodium 135 mEq/L (136-145); eGFR For African Americans > 60 (> 60); eGFR For Non-African Americans > 60 (> 60)
[2017-12-07] MEDS ORDERED: levoFLOXacin 750 MG TABLET PO ONE (08:13)
--- NOTE | 2017-12-07 08:17 | Discharge Summary ---
<Jeremy Miranda - Last Filed: 12/07/17 11:06> Date of Encounter: 12/07/17 Time of Encounter: 08:09 - Discharge Diagnosis (1) Acute exacerbation of chronic obstructive airways disease Priority: Primary Status: Acute (2) Yeast infection of the skin Priority: Primary Status: Acute (3) HTN (hypertension) Priority: Secondary Status: Chronic Qualifiers: Hypertension type: essential hypertension Qualified Code(s): I10 - Essential (primary) hypertension (4) Smoking Priority: Secondary Status: Chronic (5) DVT prophylaxis Priority: Secondary Status: Acute (6) Acute and chronic respiratory failure ([id number]) Priority: Primary Status: Acute Hospital course: Ms. Riley is a 72 year old female significant past medical history of severe COPD with bullous emphysema on 3 L continuous nasal cannula oxygen, daily tobacco abuse, obesity, hyperlipidemia, hypertension presents to the emergency departments on 12/03/2017 with worsening of shortness of breath, increased sputum production and tachypnea. She had been using her inhalers as scheduled at home and have progressive worsening of symptoms. Upon evaluation a chest x- ray was performed which demonstrated stable examination without acute focal process. EKG was performed demonstrating tachycardia. Troponin less than 0.03 , lactic acid 1.1, stable renal function, no significant findings and CBC. She is provided duo nebs, IV Solu-Medrol and started on IV Levaquin. She is admitted to general medical floor. Seen and evaluated by hospital team she was continued on scheduled breathing treatments, IV methylprednisone at 40 mg every 8 hours, daily IV Levaquin and provided Lotrimin cream for fungal coverage under the breasts and groin. She had difficulty with improvement throughout her inpatient stay likely secondary to her severe COPD. She remained in hospital for a total of 4 days with slow improvement in her respiratory status, she continued on 3 L nasal cannula oxygen which is her baseline at home. On the day of discharge she was seen and evaluated patient bedside deemed stable for discharge with a long tapering dose of by mouth prednisone for 15 days. She completed 5 days of Levaquin. Recommendations and appointment scheduled for follow-up with primary and pulmonology. Patient was agreeable with this plan at the time of discharge. - Time Spent with Patient Total time spent providing and/or coordinating discharge services: - Discharge Medications Prescriptions: Nystatin POWDER [Nystop] 1 appl TP TID PRN #1 bottle PRN Reason: Wound Healing predniSONE [PredniSONE] 40 mg PO DAILY 15 Days #18 tablet Home Medications: Albuterol Neb [Proventil Neb] 2.5 mg IH Q4HR PRN 08/13/15 [History] Albuterol Sulfate [Albuterol Inhaler] 2 puff IH Q4HR PRN 08/13/15 [History] Aspirin [Adult Low Dose Aspirin EC] 81 mg PO DAILY 08/13/15 [History] Budesonide/Formoterol 160/4.5 [Symbicort] 1 puff IH BIDR 08/13/15 [History] Furosemide [Lasix] 20 mg PO DAILY 08/13/15 [History] Losartan [Cozaar] 25 mg PO DAILY 08/13/15 [History] Oxygen 3 l NS DAILY 08/13/15 [History] Potassium Chloride [Klor-Con Sprinkle] 20 meq PO DAILY 08/13/15 [History] Roflumilast [Daliresp] 500 mcg PO DAILY 08/13/15 [History] Citalopram Hydrobromide [Citalopram HBr] 40 mg PO DAILY 12/03/17 [History] Umeclidinium [place] [Incruse Ellipta] 1 puff IH DAILY 12/03/17 [History] Nystatin POWDER [Nystop] 1 appl TP TID PRN #1 bottle 12/07/17 [Rx] predniSONE [PredniSONE] 40 mg PO DAILY 15 Days #18 tablet 12/07/17 [Rx] Allergies/Adverse Reactions: 3 Allergy/AdvReac Type Severity Reaction Status Date / Time fluticasone AdvReac patient Verified 08/13/15 07:29 [From Advair Diskus] states "it drives her up the wall" salmeterol AdvReac patient Verified 08/13/15 07:29 [From Advair Diskus] states "it drives her up the wall" Date of admission: 12/04/17 16:15 Primary care physician: Lex Ramos DO Discharging clinician: Jeremy Miranda Anticipated date of discharge: 12/07/17 - Constitutional Vitals: Temp Pulse Resp BP Pulse Ox 98.5 F 93 15 150/79 94 12/07/17 07:08 12/07/17 07:08 12/07/17 07:08 12/07/17 07:08 12/07/17 07:08 Exam: General: Patient alert, awake, oriented 3, interactive, in no acute distress HEENT: Normocephalic, atraumatic, pupils equal reactive to light, oral mucosa moist, neck supple trachea midline no palpable lymphadenopathy, no thyromegaly. Chest: Symmetric bilateral correlating with respiratory effort, effort nonlabored. Cardiac: Regular rate and rhythm, positive S1 and S2. no bruits appreciated bilateral carotids, Radial pulses 2+ bilateral, posterior tibial and dorsal pedal pulses 2+ bilateral. Respiratory: Diffusely diminished, clear to auscultation. Abdomen: Soft, nontender, positive bowel sounds, no palpable masses appreciated on examination Extremities: Symmetric bilateral, bilateral lower extremities without erythema or edema patient moving all 4 extremities spontaneously. Neurologic: No focal deficits appreciated on examination. Face symmetric, muscle strength symmetric bilateral upper and lower extremities. - Patient Status Disposition: Home Health Service Condition: Good - Discharge Instructions Instructions: Chronic Obstructive Pulmonary Disease (DC), Skin Yeast Infection (GEN) Follow Up With: Lex Ramos DO [Primary Care Provider] - 12/11/17 9:30 am Lee Rodriguez MD [Partnered Physician] - 12/27/17 8:30 am <Carlos A Ball - Last Filed: 12/07/17 16:40> Date of Encounter: 12/07/17 - Discharge Diagnosis (1) Acute exacerbation of chronic obstructive airways disease Status: Acute (2) HTN (hypertension) Status: Chronic Qualifiers: Hypertension type: essential hypertension Qualified Code(s): I10 - Essential (primary) hypertension (3) Smoking Status: Chronic (4) Yeast infection of the skin Status: Acute (5) DVT prophylaxis Status: Acute (6) Acute and chronic respiratory failure ([id number]) Status: Acute Hospital course: Ms. Riley is a 72 year old female - Time Spent with Patient Total time spent providing and/or coordinating discharge services: Date of admission: 12/04/17 16:15 Primary care physician: Lex Ramos DO - Constitutional Vitals: Temp Pulse Resp BP Pulse Ox 98.5 F 93 18 150/79 96 12/07/17 07:08 12/07/17 07:08 12/07/17 09:32 12/07/17 07:08 12/07/17 09:32 - Attending Attestation acute on chronic acute hypoxic resp failure 2ry to acute copd exacerbation due to acute bacterial bronchitis continue levaquin day 5 Taper prednisone Time spent 40 minutes I examined this patient and my medical decision-making was reviewed with the Resident Physician. I agree with the documented findings, disposition and treatment plan as described except to the extent set forth below.
[2017-12-07] MEDS ORDERED: predniSONE 20 MG TABLET PO ONE (09:06)
[2017-12-07] MEDS: Aspirin Enteric Coated 81 MG Tablet PO SCH (09:53)
[2017-12-07] MEDS: amLODIPine 5 MG TABLET PO SCH (09:53)
[2017-12-07] MEDS: Clotrimazole 1% CRM 15 GM TUBE TP SCH (09:54)
--- NOTE | 2017-12-07 10:50 | Physician Discharge Referral ---
<Jeremy Miranda - Last Filed: 12/07/17 10:48> Home Health/Hosp Referral Info Transfer to: Home Health Provider in Charge Post Discharge: PCP - Diagnosis (1) Acute exacerbation of chronic obstructive airways disease Priority: Primary Status: Acute (2) Acute and chronic respiratory failure ([id number]-[id number]) Priority: Primary Status: Acute (3) Yeast infection of the skin Priority: Primary Status: Acute (4) HTN (hypertension) Priority: Secondary Status: Chronic (5) Smoking Priority: Secondary Status: Chronic (6) DVT prophylaxis Priority: Secondary Status: Acute - Respiratory Orders Smoking Cessation: Smoking cessation has been advised. For more information, call the [place] Tobacco Quit Line at 6-276-DRLS-NOW. - Services Needed Following services are medically necessary services: Home Health Aide, Physical Therapy, Occupational Therapy, Med Social Work - Transfer Medications Prescriptions: Nystatin POWDER [Nystop] 1 appl TP TID PRN #1 bottle PRN Reason: Wound Healing predniSONE [PredniSONE] 40 mg PO DAILY 15 Days #18 tablet Home Medications: Albuterol Neb [Proventil Neb] 2.5 mg IH Q4HR PRN 08/13/15 [History] Albuterol Sulfate [Albuterol Inhaler] 2 puff IH Q4HR PRN 08/13/15 [History] Aspirin [Adult Low Dose Aspirin EC] 81 mg PO DAILY 08/13/15 [History] Budesonide/Formoterol 160/4.5 [Symbicort] 1 puff IH BIDR 08/13/15 [History] Furosemide [Lasix] 20 mg PO DAILY 08/13/15 [History] Losartan [Cozaar] 25 mg PO DAILY 08/13/15 [History] Oxygen 3 l NS DAILY 08/13/15 [History] Potassium Chloride [Klor-Con Sprinkle] 20 meq PO DAILY 08/13/15 [History] Roflumilast [Daliresp] 500 mcg PO DAILY 08/13/15 [History] Citalopram Hydrobromide [Citalopram HBr] 40 mg PO DAILY 12/03/17 [History] Umeclidinium [place] [Incruse Ellipta] 1 puff IH DAILY 12/03/17 [History] Nystatin POWDER [Nystop] 1 appl TP TID PRN #1 bottle 12/07/17 [Rx] predniSONE [PredniSONE] 40 mg PO DAILY 15 Days #18 tablet 12/07/17 [Rx] Allergies/Adverse Reactions: 3 Allergy/AdvReac Type Severity Reaction Status Date / Time fluticasone AdvReac patient Verified 08/13/15 07:29 [From Advair Diskus] states "it drives her up the wall" salmeterol AdvReac patient Verified 08/13/15 07:29 [From Advair Diskus] states "it drives her up the wall" Certification: Further, I certify that my clinical findings support that this patient is homebound (i.e. absences from home require considerable and taxing effort and are for medical reasons or [employer] services or infrequently or short duration when for other reasons) because: Homebound Reason: Patient requires assistance of a person or device to safely leave home, Severity of cardiac or pulmonary status limits activity tolerance Attestation: My signature below is to certify that this patient is under my care and that I, or nurse practitioner, or a physician's promotions assistant sales marketing working with me, has a face-to -face encounter with this patient. <Carlos A Ball - Last Filed: 12/07/17 16:41> - Diagnosis (1) Acute exacerbation of chronic obstructive airways disease Status: Acute (2) HTN (hypertension) Status: Chronic (3) Smoking Status: Chronic (4) Yeast infection of the skin Status: Acute (5) DVT prophylaxis Status: Acute (6) Acute and chronic respiratory failure ([id number]) Status: Acute - Respiratory Orders Smoking Cessation: Smoking cessation has been advised. For more information, call the [place] Tobacco Quit Line at 6-531-YFWW-NOW. Certification: Further, I certify that my clinical findings support that this patient is homebound (i.e. absences from home require considerable and taxing effort and are for medical reasons or [employer] services or infrequently or short duration when for other reasons) because: Attestation: My signature below is to certify that this patient is under my care and that I, or nurse practitioner, or a physician's promotions assistant sales marketing working with me, has a face-to -face encounter with this patient.
== END 2017-12-07 14:10 | disposition home health service (06) | DRG 190 ==
LOC: EMEROO 11:09 → 3ANU 11:09
PROVIDERS: ADMIT Internal Medicine Cardiovascular Disease; ATTEND Internal Medicine

== ENCOUNTER 2019-09-07 20:14 | Inpatient (IN) ==
[2019-09-07] MEDS ORDERED: Ipratropium/Albuterol Neb 3 ML IH ONE (20:26)
[2019-09-07] MEDS ORDERED: 0.9 % Sodium Chloride 1,000 ML IVC ONE (20:26)
[2019-09-07] MEDS ORDERED: levoFLOXacin 750 MG/150 ML 750 MG/150 ML BAG IVPB ONE (20:26)
[2019-09-07] MEDS ORDERED: methylPREDNISolone 125 MG/2 ML VIAL IVP ONE (20:26)
[2019-09-07] MEDS ORDERED: Ondansetron 4 MG/2 ML VIAL IVP ONE (20:28)
[2019-09-07 20:44] LABS: ABG Base Excess 7 mEq/L (-2 to 3); ABG HCO3 34 mEq/L (21-27); ABG Oxygen Saturation 96 % (95-98); ABG PCO2 63 mmHg (35-45); ABG PH 7.35 pH Units (7.32-7.45); ABG PO2 87 mmHg (85-104); ABG TCO2 36 mEq/L (20-26)
[2019-09-07 20:47] LABS: Basophils # 0.1 K/mcL (0.0-0.2); Basophils % 0.5 %; Eosinophils # 0.1 K/mcL (0.0-0.6); Eosinophils % 1.3 %; Hematocrit 39.2 % (35.3-44.9); Hemoglobin 12.9 g/dL (11.5-15.4); Immature Granulocytes % 0.4 % (0-4); Lymphocytes # 0.8 K/mcL (0.6-4.6); Lymphocytes % 7.4 %; Mean Corpuscular HGB Conc 32.9 g/dL (31.6-35.5); Mean Corpuscular Hemoglobin 29.1 pg (28.0-33.3); Mean Corpuscular Volume 88.3 fL (83.0-100.0); Mean Platelet Volume 9.4 fL (9.4-12.4); Monocytes # 0.8 K/mcL (0.0-1.3); Monocytes % 7.4 %; Neutrophils # 9.2 K/mcL (1.6-8.9); Platelet Count 277 K/mcL (140-400); Red Blood Count 4.44 M/mcL (3.82-4.97)
[2019-09-07 21:11] LABS: BUN/Creatinine Ratio 17 (6-26); Blood Urea Nitrogen 13 mg/dL (8-23); Calcium 9.5 mg/dL (8.6-10.3); Carbon Dioxide 32 mEq/L (23-29); Chloride 101 mEq/L (98-107); Glucose 110 mg/dL (70-105); Osmolality,Calculated 293 (280-300); Sodium 141 mEq/L (136-145); eGFR For African Americans > 60 (> 60); eGFR For Non-African Americans > 60 (> 60)
[2019-09-07 21:12] LABS: Troponin I < 0.03 ng/mL (< 0.04)
[2019-09-07 22:41] LABS: Bilirubin,Urine Negative (Negative); Blood,Urine Trace (Negative); Clarity,Urine Clear (Clear); Color,Urine Yellow (Yellow); Glucose,Urine (UA) Normal (Normal); Ketones,Urine Trace mg/dL (Negative); Leukocyte Esterase,Urine Negative (Negative); Nitrite,Urine Negative (Negative); Protein,Urine Negative (Neg-Trace); Urobilinogen,Urine Normal (Normal)
[2019-09-07 22:45] LABS: Bacteria,Urine None Seen per hpf (None-Few); Hyaline Casts,Urine None Seen per lpf (None-Few); Squamous Epithelial Cell,Urine Moderate per lpf (None-Few); WBC,Urine 0-3 per hpf (0-3)
[2019-09-08] MEDS ORDERED: *HR* Dextrose 50 % in Water (Syg) 50 ML SYRINGE IVP PRN (01:08)
[2019-09-08] MEDS ORDERED: Albuterol 2.5 MG/3 ML NEBULIZER IH PRN (01:08)
[2019-09-08] MEDS ORDERED: D5% in Water 1,000 ML IVC PRN (01:08)
[2019-09-08] MEDS ORDERED: Naloxone 0.4 MG/ML INJ IVP PRN (01:08)
[2019-09-08] MEDS ORDERED: Dextrose Gel 15 GM/37.5 ML TUBE PO PRN ×2 (01:08)
[2019-09-08] MEDS: Ipratropium/Albuterol Neb 3 ML IH SCH ×5 (03:16→22:00)
[2019-09-08] MEDS: *HR* Heparin 5,000 UNIT/ML VIAL SQ SCH ×2 (05:36→16:30)
[2019-09-08 05:40] LABS: Basophils % 0.1 %; Hematocrit 37.6 % (35.3-44.9); Hemoglobin 11.9 g/dL (11.5-15.4); Immature Granulocytes % 0.5 % (0-4); Lymphocytes # 0.3 K/mcL (0.6-4.6); Lymphocytes % 3.4 %; Mean Corpuscular HGB Conc 31.6 g/dL (31.6-35.5); Mean Corpuscular Hemoglobin 29.2 pg (28.0-33.3); Mean Corpuscular Volume 92.4 fL (83.0-100.0); Mean Platelet Volume 10.1 fL (9.4-12.4); Monocytes # 0.1 K/mcL (0.0-1.3); Monocytes % 0.6 %; Neutrophils # 8.9 K/mcL (1.6-8.9); Platelet Count 276 K/mcL (140-400); Red Blood Count 4.07 M/mcL (3.82-4.97); Red Cell Distribution Width 12.8 % (11.5-14.5); Segmented Neutrophils % 95.4 %; White Blood Count 9.4 K/mcL (4.3-11.1)
[2019-09-08 05:49] LABS: Prothrombin Time 11.5 Seconds (9.4-12.1)
[2019-09-08 06:03] LABS: Alanine Aminotransferase 11 Units/L (7-52); Albumin 3.8 g/dL (3.5-5.7); Albumin/Globulin Ratio 1.4 (1.1-2.2); Alkaline Phosphatase 92 Units/L (34-104); Aspartate Amino Transferase 14 Units/L (13-39); BUN/Creatinine Ratio 14 (6-26); Bilirubin,Total 0.4 mg/dL (0.3-1.0); Blood Urea Nitrogen 9 mg/dL (8-23); Calcium 9.3 mg/dL (8.6-10.3); Carbon Dioxide 32 mEq/L (23-29); Chloride 100 mEq/L (98-107); Chol/HDL Ratio 2.5 (0-4.9); Cholesterol 211 mg/dL (< 200); Globulin 2.8 g/dL (2.4-3.5); Glucose 144 mg/dL (70-105); HDL Cholesterol 84 mg/dL (40-59); LDL Cholesterol,Calculated 119 mg/dL (0-99); Magnesium 1.9 mg/dL (1.6-2.6); Osmolality,Calculated 293 (280-300); Phosphorous 2.8 mg/dL (2.7-4.5); Potassium 4.3 mEq/L (3.5-5.1); Sodium 141 mEq/L (136-145); Total Protein 6.6 g/dL (6.4-8.9); Triglycerides 39 mg/dL (< 150); eGFR For African Americans > 60 (> 60); eGFR For Non-African Americans > 60 (> 60)
[2019-09-08 08:56] LABS: Estimated Average Glucose 120 mg/dl
[2019-09-08] MEDS ORDERED: predniSONE 20 MG TABLET PO SCH (09:00)
[2019-09-08] MEDS: cefTRIAXone 1,000 MG in Water for inj. (sterile) 10 ML IVP SCH (09:18)
[2019-09-08] MEDS: MethylPREDNISolone 40 MG/ML VIAL IVP SCH ×3 (09:19→23:35)
[2019-09-08] MEDS ORDERED: Acetaminophen 325 MG TABLET PO ONE (12:05)
[2019-09-08 14:19] LABS: Adenovirus Not Detected (Not Detect); Bordetella Pertussis Not Detected (Not Detect); Chlamydophila pneumoniae Not Detected (Not Detect); Coronavirus 229E Not Detected (Not Detect); Coronavirus HKU1 Not Detected (Not Detect); Coronavirus NL63 Not Detected (Not Detect); Coronavirus OC43 Not Detected (Not Detect); Human Metapneumovirus Not Detected (Not Detect); Human Rhinovirus/Enterovirus DETECTED (Not Detect); Influenza A Subtype 2009 H1 Not Detected (Not Detect); Influenza B Not Detected (Not Detect); Mycoplasma pneumoniae Not Detected (Not Detect); Parainfluenza Virus 1 Not Detected (Not Detect); Parainfluenza Virus 2 Not Detected (Not Detect); Parainfluenza Virus 3 Not Detected (Not Detect); Parainfluenza Virus 4 Not Detected (Not Detect); Respiratory Syncytial Virus Not Detected (Not Detect)
[2019-09-09] MEDS: hydrOXYzine pamoate 25 MG CAPSULE PO PRN (02:58)
[2019-09-09] MEDS: Ipratropium/Albuterol Neb 3 ML IH SCH ×2 (04:09→10:35)
[2019-09-09 04:58] LABS: Basophils % 0.1 %; Hematocrit 37.1 % (35.3-44.9); Hemoglobin 12.1 g/dL (11.5-15.4); Immature Granulocytes % 0.7 % (0-4); Lymphocytes # 0.6 K/mcL (0.6-4.6); Lymphocytes % 5.8 %; Mean Corpuscular HGB Conc 32.6 g/dL (31.6-35.5); Mean Corpuscular Hemoglobin 28.8 pg (28.0-33.3); Mean Corpuscular Volume 88.3 fL (83.0-100.0); Mean Platelet Volume 9.7 fL (9.4-12.4); Monocytes # 0.4 K/mcL (0.0-1.3); Neutrophils # 9.4 K/mcL (1.6-8.9); Platelet Count 327 K/mcL (140-400); Red Cell Distribution Width 12.6 % (11.5-14.5); Segmented Neutrophils % 89.4 %; White Blood Count 10.6 K/mcL (4.3-11.1)
[2019-09-09 05:30] LABS: BUN/Creatinine Ratio 22 (6-26); Blood Urea Nitrogen 17 mg/dL (8-23); Calcium 9.1 mg/dL (8.6-10.3); Carbon Dioxide 31 mEq/L (23-29); Chloride 99 mEq/L (98-107); Glucose 143 mg/dL (70-105); Magnesium 2.2 mg/dL (1.6-2.6); Osmolality,Calculated 290 (280-300); Phosphorous 2.5 mg/dL (2.7-4.5); Sodium 138 mEq/L (136-145); eGFR For African Americans > 60 (> 60); eGFR For Non-African Americans > 60 (> 60)
[2019-09-09] MEDS: *HR* Heparin 5,000 UNIT/ML VIAL SQ SCH ×2 (05:33→17:40)
[2019-09-09] MEDS: cefTRIAXone 1,000 MG in Water for inj. (sterile) 10 ML IVP SCH (09:46)
[2019-09-09] MEDS: MethylPREDNISolone 40 MG/ML VIAL IVP SCH ×2 (09:46→17:40)
[2019-09-09] MEDS: Gabapentin 100 MG CAPSULE PO SCH ×3 (09:57→20:20)
[2019-09-09] MEDS: Furosemide 20 MG TABLET PO SCH (09:58)
[2019-09-09] MEDS: Aspirin Enteric Coated 81 MG Tablet PO SCH (09:58)
[2019-09-09] MEDS: Budesonide/Formoterol 160/4.5 1 PUFF INH IH SCH ×2 (10:35→20:29)
[2019-09-09] MEDS: Tiotropium 18 MCG inhalation IH SCH (10:35)
[2019-09-09] MEDS ORDERED: hydrALAZINE 10 MG TABLET PO PRN (13:28)
[2019-09-09] MEDS ORDERED: Levalbuterol Neb 1.25 MG/3 ML IH SCH (16:00)
[2019-09-09] MEDS: Acetylcysteine 10% 2 ML INHSOL IH SCH ×2 (16:03→20:29)
[2019-09-09] MEDS: Levalbuterol Neb 1.25 MG/3 ML IH SCH (20:29)
[2019-09-10] MEDS: Levalbuterol Neb 1.25 MG/3 ML IH SCH ×7 (00:10→23:23)
[2019-09-10] MEDS: Acetylcysteine 10% 2 ML INHSOL IH SCH ×7 (00:10→23:22)
[2019-09-10] MEDS: MethylPREDNISolone 40 MG/ML VIAL IVP SCH ×3 (00:40→21:39)
[2019-09-10] MEDS: *HR* Heparin 5,000 UNIT/ML VIAL SQ SCH ×2 (05:28→18:40)
[2019-09-10 06:17] LABS: BUN/Creatinine Ratio 32 (6-26); Blood Urea Nitrogen 24 mg/dL (8-23); Calcium 9.7 mg/dL (8.6-10.3); Carbon Dioxide 34 mEq/L (23-29); Chloride 96 mEq/L (98-107); Glucose 149 mg/dL (70-105); Magnesium 2.2 mg/dL (1.6-2.6); Osmolality,Calculated 293 (280-300); Phosphorous 2.8 mg/dL (2.7-4.5); Potassium 3.9 mEq/L (3.5-5.1); Sodium 138 mEq/L (136-145); eGFR For African Americans > 60 (> 60); eGFR For Non-African Americans > 60 (> 60)
[2019-09-10] MEDS: Gabapentin 100 MG CAPSULE PO SCH ×3 (07:52→21:39)
[2019-09-10] MEDS: Budesonide/Formoterol 160/4.5 1 PUFF INH IH SCH ×2 (07:52→19:51)
[2019-09-10] MEDS: Furosemide 20 MG TABLET PO SCH (07:52)
[2019-09-10] MEDS: Aspirin Enteric Coated 81 MG Tablet PO SCH (07:53)
[2019-09-10] MEDS: Tiotropium 18 MCG inhalation IH SCH (07:53)
[2019-09-10] MEDS: cefTRIAXone 1,000 MG in Water for inj. (sterile) 10 ML IVP SCH (07:55)
[2019-09-10] MEDS ORDERED: amLODIPine 5 MG TABLET PO SCH ×2 (15:07→17:00)
[2019-09-11 01:30] LABS: BUN/Creatinine Ratio 28 (6-26); Blood Urea Nitrogen 21 mg/dL (8-23); Carbon Dioxide 34 mEq/L (23-29); Chloride 97 mEq/L (98-107); Glucose 131 mg/dL (70-105); Magnesium 2.2 mg/dL (1.6-2.6); Osmolality,Calculated 289 (280-300); Phosphorous 2.8 mg/dL (2.7-4.5); Potassium 3.5 mEq/L (3.5-5.1); Sodium 137 mEq/L (136-145); eGFR For African Americans > 60 (> 60); eGFR For Non-African Americans > 60 (> 60)
[2019-09-11] MEDS: hydrOXYzine pamoate 25 MG CAPSULE PO PRN (03:44)
[2019-09-11] MEDS: *HR* Heparin 5,000 UNIT/ML VIAL SQ SCH ×2 (03:44→17:32)
[2019-09-11] MEDS: Levalbuterol Neb 1.25 MG/3 ML IH SCH ×6 (03:52→23:54)
[2019-09-11] MEDS: Acetylcysteine 10% 2 ML INHSOL IH SCH ×6 (03:52→23:54)
[2019-09-11] MEDS: Budesonide/Formoterol 160/4.5 1 PUFF INH IH SCH ×2 (07:35→20:05)
[2019-09-11] MEDS: Tiotropium 18 MCG inhalation IH SCH (07:35)
[2019-09-11] MEDS: cefTRIAXone 1,000 MG in Water for inj. (sterile) 10 ML IVP SCH (08:36)
[2019-09-11] MEDS: MethylPREDNISolone 40 MG/ML VIAL IVP SCH ×2 (08:36→20:54)
[2019-09-11] MEDS: Furosemide 20 MG TABLET PO SCH (08:37)
[2019-09-11] MEDS: Gabapentin 100 MG CAPSULE PO SCH ×3 (08:38→20:54)
[2019-09-11] MEDS: Aspirin Enteric Coated 81 MG Tablet PO SCH (08:38)
[2019-09-11] MEDS: Doxycycline 100 MG in 0.9 % Sodium Chloride Mini Bag 100 ML IVPB SCH ×2 (09:42→17:32)
[2019-09-11] MEDS: amLODIPine 5 MG TABLET PO SCH (09:43)
[2019-09-12 02:47] LABS: BUN/Creatinine Ratio 31 (6-26); Blood Urea Nitrogen 24 mg/dL (8-23); Calcium 9.1 mg/dL (8.6-10.3); Carbon Dioxide 34 mEq/L (23-29); Chloride 96 mEq/L (98-107); Glucose 157 mg/dL (70-105); Osmolality,Calculated 289 (280-300); Phosphorous 3.3 mg/dL (2.7-4.5); Potassium 3.8 mEq/L (3.5-5.1); Sodium 136 mEq/L (136-145); eGFR For African Americans > 60 (> 60); eGFR For Non-African Americans > 60 (> 60)
[2019-09-12] MEDS: Levalbuterol Neb 1.25 MG/3 ML IH SCH ×4 (03:50→15:42)
[2019-09-12] MEDS: Acetylcysteine 10% 2 ML INHSOL IH SCH ×4 (03:50→15:42)
[2019-09-12] MEDS: *HR* Heparin 5,000 UNIT/ML VIAL SQ SCH ×2 (05:46→17:02)
[2019-09-12] MEDS: Doxycycline 100 MG in 0.9 % Sodium Chloride Mini Bag 100 ML IVPB SCH ×2 (05:46→17:02)
[2019-09-12] MEDS: Budesonide/Formoterol 160/4.5 1 PUFF INH IH SCH (08:04)
[2019-09-12] MEDS: Tiotropium 18 MCG inhalation IH SCH (08:04)
[2019-09-12] MEDS: Gabapentin 100 MG CAPSULE PO SCH ×2 (08:05→14:37)
[2019-09-12] MEDS: Aspirin Enteric Coated 81 MG Tablet PO SCH (08:05)
[2019-09-12] MEDS: amLODIPine 5 MG TABLET PO SCH (08:05)
[2019-09-12] MEDS: Furosemide 20 MG TABLET PO SCH (08:06)
[2019-09-12] MEDS ORDERED: predniSONE 20 MG TABLET PO SCH (09:00)
[2019-09-12 18:40] VITALS: BP 132/73
== END 2019-09-12 18:58 | disposition home health service (06) | DRG 190 ==
LOC: 3BNU 20:14 → EMEROOARM 20:14 → 3BNU 22:24 → SUATTDRO 09-08 11:34
PROVIDERS: ADMIT Family Medicine; ATTEND Internal Medicine